=== PATIENT | male | born 1995 | race Caucasian/White ===

== ENCOUNTER 2017-06-18 20:40 | Emergency (ER) | payer OTHER ==
[~2017-06-18] VITALS: Ht 185.4 cm; Wt 95.5 kg
[2017-06-18 20:51] VITALS: TEMP 98.2
[2017-06-18] MEDS ORDERED: [UNRECOGNIZED DRUG - REMARK] (21:17)
[2017-06-18] MEDS ORDERED: NORCO 325 MG-51 TAB PO (22:35)
[2017-06-18 22:59] VITALS: BP 115/72; PULSE 82
== END 2017-06-18 23:03 | disposition home or self-care (01) ==
LOC: COL.ER 20:40
DX: S82.832A Other fracture of upper and lower end of left fibula, initial encounter for closed fracture (principal); W18.09XA Striking against other object with subsequent fall, initial encounter; Y92.828 Other wilderness area as the place of occurrence of the external cause; R21 Rash and other nonspecific skin eruption
CPT/HCPCS: J1170; J2405

== ENCOUNTER 2018-05-04 20:33 | Emergency (ER) | payer OTHER ==
[~2018-05-04] VITALS: Ht 185.4 cm; Wt 95.5 kg
[~2018-05-04 20:33] MED LIST: NORCO 325 MG-51 TAB PO; [UNRECOGNIZED DRUG - REMARK]
[2018-05-04 20:40] VITALS: BP 131/58; TEMP 98
[2018-05-04 21:13] LABS: BASO % 0.3 % (0.0-2.0); EOS # 0.3 (0.0-0.7); EOS % 2.8 % (0-4.0); GRAN # 5.2 (1.4-6.5); GRAN % 59.3 % (42.2-75.2); HEMATOCRIT 44.7 % (42.0-52.0); HEMOGLOBIN 15.4 g/dl (13.5-18.0); LYMPH # 2.7 (1.2-3.4); LYMPH % 30.7 % (20.0-51.0); MEAN CELL VOLUME 92 fl (80.0-100.0); MEAN CORPUSCULAR HEMOGLOBIN 32 pg (27.0-31.0); MEAN CORPUSCULAR HGB CONC 35 g/dl (33.0-37.0); MEAN PLATELET VOLUME 9.2 fl (7.4-10.4); MONO # 0.6 (0.1-0.6); MONO % 6.7 % (1.7-9.3); PLATELET COUNT 260 K/mm3 (130-400); RED BLOOD COUNT 4.86 M/mm3 (4.20-5.60); REDCELL DISTRIBUTION WIDTH-CV 12.7 % (11.5-14.5)
[2018-05-04 21:21] LABS: ALANINE AMINOTRANSFERASE 61 U/L (21-72); ALBUMIN 4.3 gm/dL (3.5-5.0); ALKALINE PHOSPHATASE 92 U/L (50-136); ANION GAP 15 mmol/L (7-16); AST,SGOT 38 U/L (15-37); BILIRUBIN,TOTAL 0.3 mg/dL (0.0-1.0); BLOOD UREA NITROGEN 17 mg/dL (9-20); CALCIUM 9.5 mg/dL (8.4-10.2); CARBON DIOXIDE 26 mmol/L (22-30); CHLORIDE 99 mmol/L (98-107); CREATININE, serum 1.05 mg/dL (0.66-1.25); GLUCOSE 114 mg/dL (74-106); POTASSIUM 3.8 mmol/L (3.4-5.0); SODIUM 140 mmol/L (137-145); TOTAL PROTEIN 7.6 gm/dL (6.4-8.2)
[2018-05-04 21:31] LABS: TROPONIN-I < 0.012 ng/mL (0.000-0.034)
[2018-05-04] MEDS ORDERED: FLEXERIL 1010 MG/TAB PO (21:45)
[2018-05-04 22:05] VITALS: PULSE 88
== END 2018-05-04 22:11 | disposition home or self-care (01) ==
LOC: COL.ER 20:33
PROVIDERS: Emergency Medicine
DX: M54.6 Pain in thoracic spine (principal)
CPT/HCPCS: J1885; J2060; J7030